=== PATIENT | male | born 1995 | race Caucasian/White ===

== ENCOUNTER 2021-01-20 15:15 | Emergency (ER) | payer MEDICAID ==
--- NOTE | 2021-01-20 15:37 | EDM.PDOC ---
ED HPI GENERAL MEDICAL PROBLEM - General Chief Complaint: Upper Extremity Injury/Pain Stated Complaint: L HAND INJURY Time Seen by Provider: 01/20/21 15:20 Source of Information: Reports: Patient History Limitations: Reports: No Limitations - History of Present Illness INITIAL COMMENTS - FREE TEXT/NARRATIVE: Patient comes emergency department today's with an injury to his left hand. Just prior to arrival the patient was bowling when he dropped a bowling ball on the dorsal aspect of his left hand on the metacarpal region. This happened just prior to arrival. No other injury to his left upper extremity. He is able to flex and extend at the wrist and the fingers appropriately. No paresthesias. He is not take anything for pain prior to arrival. Left Hand Pain Score (Numeric/FACES): 7 - Related Data Allergies Allergy/AdvReac Type Severity Reaction Status Date / Time No Known Allergies Allergy Verified 01/20/21 15:29 Home Meds: Home Meds . [No Known Home Meds] 01/20/21 [History] Review of Systems - Review of Systems Review Of Systems: Comprehensive ROS is negative, except as noted in HPI. ED EXAM, GENERAL - Physical Exam Exam: See Below Exam Limited By: No Limitations General Appearance: Alert, WD/WN, No Apparent Distress Respiratory/Chest: No Respiratory Distress Cardiovascular: Normal Peripheral Pulses Peripheral Pulses: 2+: Radial (L), Radial (R) Extremities: Normal Inspection (The left hand is rather atraumatic appearing. There is a small amount of swelling at the very mid third metacarpal. There is no breaks in the skin. There is no overt bony deformity. He is able to flex and extend at all the joints appropriately of the wrist and hand. CMS intact appropriately.). No: Joint Swelling, Arm Pain, Limited Range of Motion Course - Vital Signs Last Recorded V/S: Last Vital Signs Temp 98.7 F 01/20/21 15:20 Pulse 80 01/20/21 15:20 Resp 16 01/20/21 15:20 BP 121/68 01/20/21 15:20 Pulse Ox 98 01/20/21 15:20 - Orders/Labs/Meds Orders: Active Orders 24 hr Category Date Time Status Hand Comp Min 3V Lt [CR] Stat Exams 01/20/21 15:25 Taken Meds: Medications Discontinued Medications Generic Name Dose Route Start Last Admin Trade Name Freq PRN Reason Stop Dose Admin Ibuprofen 600 mg 01/20/21 15:25 Ibuprofen 200 Mg Tab PO 01/20/21 15:26 NOW STA - Radiology Interpretation Free Text/Narrative:: X-ray of the left hand initially reviewed extemporaneously by myself. There is no subluxation dislocation or bony abnormality or acute fracture. Radiological review to follow. X-ray per radiology shows no fracture dislocation or other osseous abnormality. - Re-Assessments/Exams Free Text/Narrative Re-Assessment/Exam: 01/20/21 15:55 X-ray initially reviewed as negative by myself. Radiology to follow. Ibuprofen given orally. I reviewed the negative x-ray with the patient. We will place an Carlos Alberto wrap for comfort and use NSAIDs and ice therapy anything new or worse to recheck. He is comfortable with this plan his questions were answered. I will contact him if the radiologist sees anything different on his x-ray. Departure - Departure Time of Disposition: 15:56 Disposition: Home, Self-Care 01 Clinical Impression: Injury of hand, left Qualifiers: Encounter type: initial encounter Qualified Code(s): S69.92XA - Unspecified injury of left wrist, hand and finger(s), initial encounter - Discharge Information Instructions: Pain Medicine Instructions, [id number], Crush Injury of the Hand, [id number], RICE Therapy for Routine Care of Injuries, [id number] Forms: ED Department Discharge Additional Instructions: Tylenol and or Ibuprofen as needed for pain. RICE therapy, carlos alberto wrap for comfort. Ice to the sore area. Carlos Alberto wrap for comfort. Return to the ED if new or worsening symptoms. Follow up with PCP in a week if not improving sooner if worse. Sepsis Event Note (ED) - Focused Exam Vital Signs: Vital Signs Temp Pulse Resp BP Pulse Ox 01/20/21 15:20 98.7 F 80 16 121/68 98 - My Orders Last 24 Hours: My Active Orders 01/20/21 15:25 Hand Comp Min 3V Lt [CR] Stat - Assessment/Plan Last 24 Hours: My Active Orders 01/20/21 15:25 Hand Comp Min 3V Lt [CR] Stat
--- NOTE | 2021-01-20 15:59 | CR ---
[id number] RAD/RAD Hand Left 3V EXAM: RAD Hand Left 3V INDICATION: CRUSH FROM BOWLING BALL INJURY. COMPARISON: None. DISCUSSION: No fracture, dislocation or other osseous abnormality. IMPRESSION: 1. Negative exam. Rell Ignacio MD 01/20/21 [id number] Thank you for allowing us to participate in the care of your patient.
[2021-01-20] MEDS: Ibuprofen 200 MG Tab PO STA (16:05)
== END 2021-01-20 16:08 | disposition home or self-care (01) ==
LOC: VM.ED 15:15
DX: S69.92XA Unspecified injury of left wrist, hand and finger(s), initial encounter (principal); W20.8XXA Other cause of strike by thrown, projected or falling object, initial encounter; Y93.54 Activity, bowling
CPT/HCPCS: 73130-LT; 99283; 99283-25; A9270-GY

== ENCOUNTER 2021-11-18 12:45 | Emergency (ER) | payer OTHER ==
[2021-11-18] MEDS ORDERED: Acetaminophen/HYDROcodone 325-5 MG Tab PO ONE (13:33)
[2021-11-18] MEDS ORDERED: Ketorolac 30 MG/ML SDV IM ONE (13:33)
== END 2021-11-18 14:57 | disposition home or self-care (01) ==
LOC: VM.ED 12:45
DX: S43.402A Unspecified sprain of left shoulder joint, initial encounter (principal); S20.212A Contusion of left front wall of thorax, initial encounter; W13.2XXA Fall from, out of or through roof, initial encounter
CPT/HCPCS: 71046; 73030-LT; 96372; 99283; 99283-25; A9270-GY; J1885

== ENCOUNTER 2022-02-24 06:55 | Emergency (ER) | payer OTHER ==
[2022-02-24] MEDS ORDERED: Ondansetron 4 MG/2 ML SDV ONE (07:26)
[2022-02-24] MEDS ORDERED: Lactated Ringers 1,000 ML IV ONE (07:26)
[2022-03-20 11:21] LABS: BARBITURATE SCREEN,URINE NEGATIVE (NEGATIVE); BENZODIAZEPINES SCREEN,URINE NEGATIVE (NEGATIVE); BUPRENORPHINE SCREEN,URINE NEGATIVE (NEGATIVE); METHAMPHETAMINE SCREEN, URINE NEGATIVE (NEGATIVE); THC SCREEN,URINE 50 NG/ML POSITIVE (NEGATIVE)
[2022-03-20 11:25] LABS: SODIUM,NA 141 mmol/L (136-145)
[2022-03-20 11:26] LABS: ANION GAP 12.6 mmol/L (5-15); CHLORIDE,CL 104 mmol/L (98-107); ESTIMATED GFR 96 mL/min (>=60)
== END 2022-02-24 09:15 | disposition home or self-care (01) ==
LOC: VM.ED 06:55
DX: R55 Syncope and collapse (principal)
CPT/HCPCS: 36415; 70450; 80053; 80305-QW; 80307; 81003; 83735; 84100; 84484; 85025; 93005; 93010; 96361; 96374; 99284; 99284-25; J2405; J7120

== ENCOUNTER 2022-05-07 17:58 | Emergency (ER) | payer SELFPAY ==
[2022-05-07] MEDS ORDERED: Ketorolac 30 MG/ML SDV IM ONE (18:21)
[2022-05-07] MEDS ORDERED: Promethazine 25 MG/ML SDV IM ONE (18:21)
[2022-05-07] MEDS ORDERED: Take Home: Promethazine 25 MG, 4 Tab Pack PO ONE (18:22)
[2022-05-07 18:50] LABS: CORONAVIRUS COVID-19 NAA NEGATIVE (NEGATIVE); RESPIRATORY SYNCYTIAL VIR NAA NEGATIVE (NEGATIVE)
== END 2022-05-07 19:04 | disposition home or self-care (01) ==
LOC: VM.ED 17:58
DX: R11.2 Nausea with vomiting, unspecified (principal); R19.7 Diarrhea, unspecified; R50.9 Fever, unspecified; M79.10 Myalgia, unspecified site; R10.84 Generalized abdominal pain; Z20.822 Contact with and (suspected) exposure to COVID-19
CPT/HCPCS: 0241U; 96372; 99283; A9270-GY; J1885; J2550

== ENCOUNTER 2022-09-01 11:15 | Emergency (ER) | payer SELFPAY ==
[2022-09-01 12:23] LABS: CHLORIDE,CL 101 mmol/L (98-107); SODIUM,NA 142 mmol/L (136-145)
[2022-09-01 12:24] LABS: ANION GAP 21.3 mmol/L (5-15); ESTIMATED GFR 96 mL/min (>=60)
[2022-09-01 13:30] LABS: PCO2 ARTERIAL,POC 31 mmHg (35-48)
[2022-09-01] MEDS ORDERED: Ondansetron 4 MG Tab.DIS PO ONE (13:57)
== END 2022-09-01 14:11 ==
LOC: VM.ED 11:15
DX: K30 Functional dyspepsia (principal); R11.0 Nausea
CPT/HCPCS: 36415; 36600; 80053; 82803; 83690; 85025; 85652; 93005; 93010; 99284; A9270-GY

== ENCOUNTER 2022-10-05 00:23 | Emergency (ER) | payer SELFPAY ==
[2022-10-05] MEDS: Acetaminophen/HYDROcodone 325-5 MG Tab PO ONE (01:40)
== END 2022-10-05 02:11 ==
LOC: VM.ED 00:23
DX: S00.83XA Contusion of other part of head, initial encounter (principal); S40.211A Abrasion of right shoulder, initial encounter; S30.811A Abrasion of abdominal wall, initial encounter; S80.212A Abrasion, left knee, initial encounter; W22.8XXA Striking against or struck by other objects, initial encounter
CPT/HCPCS: 70486; 72125; 99284; A9270; 99283

== ENCOUNTER 2022-11-13 20:17 | Emergency (ER) | payer OTHER ==
[2022-11-13 20:58] LABS: BASOPHILS PERCENT AUTO 0.3 % (0.2-1.2); EOSINOPHILS ABSOLUTE AUTO 0.1 x10^3/uL (0.0-0.5); EOSINOPHILS PERCENT AUTO 1.5 % (0.0-4.0); HEMATOCRIT 40.8 % (40.0-52.0); HEMOGLOBIN 13.8 g/dL (14.0-18.0); IMMATURE GRAN ABSOLUTE AUTO 0.01 x10^3/uL (0.00-0.07); LYMPHOCYTES ABSOLUTE AUTO 2.5 x10^3/uL (1.0-4.8); LYMPHOCYTES PERCENT AUTO 34.3 % (25.0-50.0); MEAN CORPUSCULAR HEMOGLOBIN 29.7 pg (26.0-32.0); MEAN CORPUSCULAR HGB CONC 33.8 g/dL (32.0-36.0); MEAN CORPUSCULAR VOLUME 87.9 fL (78.0-93.0); MONOCYTES ABSOLUTE AUTO 0.3 x10^3/uL (0.0-0.8); MONOCYTES PERCENT AUTO 4.6 % (2.0-11.0); NEUTROPHILS ABSOLUTE AUTO 4.3 x10^3/uL (1.8-7.7); NEUTROPHILS PERCENT AUTO 59.2 % (50.0-80.0); PLATELET COUNT,PLT 215 x10^3/uL (130-400); RED BLOOD CELL COUNT 4.64 x10^6/uL (4.5-6.0); WHITE BLOOD CELL COUNT,WBC 7.2 x10^3/uL (4.0-10.0)
[2022-11-13 21:20] LABS: A/G RATIO 1.29; ALANINE AMINOTRANSFERASE,ALT 22 U/L (16-63); ALKALINE PHOSPHATASE 96 U/L (46-116); ANION GAP 13.9 mmol/L (5-15); ASPARTATE AMNIOTRANSFERASE,AST 19 U/L (15-37); BILIRUBIN TOTAL 0.2 mg/dL (0.2-1.0); BLOOD UREA NITROGEN,BUN 12 mg/dL (7-18); CALCIUM 8.7 mg/dL (8.5-10.1); CARBON DIOXIDE,CO2 29 mmol/L (21-32); CHLORIDE,CL 105 mmol/L (98-107); ESTIMATED GFR 107 mL/min (>=60); GLUCOSE RANDOM 128 mg/dL (70-99); POTASSIUM,K 3.9 mmol/L (3.5-5.1); PROTEIN TOTAL,TP 7.1 g/dL (6.4-8.2); SODIUM,NA 144 mmol/L (136-145)
[2022-11-13] MEDS ORDERED: Acetaminophen 325 MG Tab PO ONE (22:02)
== END 2022-11-13 22:52 | disposition home or self-care (01) ==
LOC: VM.ED 20:17
DX: S00.83XA Contusion of other part of head, initial encounter (principal); S20.219A Contusion of unspecified front wall of thorax, initial encounter; V23.49XA Other motorcycle driver injured in collision with car, pick-up truck or van in traffic accident, initial encounter; Y92.410 Unspecified street and highway as the place of occurrence of the external cause
CPT/HCPCS: 36415; 70450; 71045; 72125; 80053; 85025; 99284; A9270-GY

== ENCOUNTER 2023-01-21 17:07 | Emergency (ER) | payer SELFPAY ==
[2023-01-21 17:25] VITALS: BP 133/69; PULSE 58
[2023-01-21] MEDS ORDERED: Ibuprofen 200 MG Tab PO ONE (17:39)
[2023-01-21] MEDS ORDERED: ALPRAZolam 0.5 MG Tab PO ONE (17:42)
== END 2023-01-21 17:52 | disposition home or self-care (01) ==
LOC: VM.ED 17:07
DX: S63.91XA Sprain of unspecified part of right wrist and hand, initial encounter (principal); W22.8XXA Striking against or struck by other objects, initial encounter
CPT/HCPCS: 99283; A9270-GY

== ENCOUNTER 2023-02-16 15:09 | Emergency (ER) | payer OTHER ==
[2023-02-16] MEDS ORDERED: Sodium Chloride 0.9% 1,000 ML IV ONE (15:37)
[2023-02-16 15:44] LABS: BASOPHILS PERCENT AUTO 0.3 % (0.2-1.2); EOSINOPHILS PERCENT AUTO 0.3 % (0.0-4.0); HEMATOCRIT 45.5 % (40.0-52.0); HEMOGLOBIN 15.8 g/dL (14.0-18.0); IMMATURE GRAN ABSOLUTE AUTO 0.02 x10^3/uL (0.00-0.07); LYMPHOCYTES ABSOLUTE AUTO 2.6 x10^3/uL (1.0-4.8); LYMPHOCYTES PERCENT AUTO 23.8 % (25.0-50.0); MEAN CORPUSCULAR HEMOGLOBIN 29.5 pg (26.0-32.0); MEAN CORPUSCULAR HGB CONC 34.7 g/dL (32.0-36.0); MONOCYTES ABSOLUTE AUTO 0.6 x10^3/uL (0.0-0.8); MONOCYTES PERCENT AUTO 5.4 % (2.0-11.0); NEUTROPHILS ABSOLUTE AUTO 7.8 x10^3/uL (1.8-7.7); PLATELET COUNT,PLT 237 x10^3/uL (130-400); RED BLOOD CELL COUNT 5.35 x10^6/uL (4.5-6.0); WHITE BLOOD CELL COUNT,WBC 11.1 x10^3/uL (4.0-10.0)
[2023-02-16 16:02] LABS: A/G RATIO 1.6; ALBUMIN 4.8 g/dL (3.4-5.0); BILIRUBIN TOTAL 0.7 mg/dL (0.2-1.0); C-REACTIVE PROTEIN 0.09 mg/dL (<=0.30); CALCIUM 9.7 mg/dL (8.5-10.1); CREATININE 1.2 mg/dL (0.70-1.30); EST CRCL DRUG DOSING (CG) 90.25 mL/min; MAGNESIUM 1.6 mg/dL (1.8-2.4); POTASSIUM,K 3.5 mmol/L (3.5-5.1); PROTEIN TOTAL,TP 7.8 g/dL (6.4-8.2)
[2023-02-16 16:03] LABS: ANION GAP 16.5 mmol/L (5-15)
[2023-02-16] MEDS ORDERED: Magnesium Chloride 64 MG Tab.ER PO ONE (17:20)
[2023-02-16] MEDS ORDERED: ALPRAZolam 0.25 MG Tab PO ONE (17:30)
== END 2023-02-16 17:45 | disposition home or self-care (01) ==
LOC: VM.ED 15:09
DX: K52.9 Noninfective gastroenteritis and colitis, unspecified (principal); E83.42 Hypomagnesemia; Z72.0 Tobacco use
CPT/HCPCS: 70450; 71046; 80053; 83735; 84484; 85025; 86140; 93005; 93010; 96360; 99284; 99285-25; A9270-GY; J7030